=== PATIENT | female | born 2000 | race Caucasian/White ===

== ENCOUNTER 2022-02-03 16:25 | Emergency (ER) | payer OTHER ==
[~2022-02-03] VITALS: Ht 162.6 cm; Wt 66.7 kg
[2022-02-03 16:39] VITALS: BP 116/83
--- NOTE | 2022-02-03 17:16 | NUR ---
patient no longer at holding room. not seen by er physician.
== END 2022-02-03 17:18 | disposition left against medical advice (07) ==
LOC: ER 16:42
DX: Z53.21 Procedure and treatment not carried out due to patient leaving prior to being seen by health care provider (principal)